=== PATIENT | male | born 2000 | race Asian ===

== ENCOUNTER 2024-03-14 09:19 | Emergency (ER) | payer BC, SELFPAY ==
[2024-03-14 09:24] VITALS: BP 119/74
[2024-03-14 10:21] VITALS: BMI 20.3
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
[2024-03-14] MEDS: TYLENOL 1000 MG PO (11:37)
== END 2024-03-14 11:42 | disposition home or self-care (01) ==
LOC: EMR 09:19
PROVIDERS: EMERGENCY PHYSICIAN Emergency Medicine; FAMILY PHYSICIAN Family Medicine
DX: S09.90XA Unspecified injury of head, initial encounter (principal); R42 Dizziness and giddiness; R51.9 Headache, unspecified; V47.0XXA Car driver injured in collision with fixed or stationary object in nontraffic accident, initial encounter; Y92.410 Unspecified street and highway as the place of occurrence of the external cause
CPT/HCPCS: 99283